=== PATIENT | female | born 1975 | race Caucasian/White ===

== ENCOUNTER 2024-09-08 15:10 | Outpatient (AMB) | payer OTHER, SELFPAY ==
--- NOTE | 2024-09-08 15:18 | MHC.OFFVIS ---
Vital Signs 09/08/24 15:22 09/08/24 15:24 09/08/24 16:10 Height 5 ft 1 in Weight 104 lb 6 oz BMI 19.7 BP 154/78 H 142/70 H 120/70 Blood Pressure Location Rt brachial Lt brachial Rt brachial Position Sitting Sitting Sitting Pulse 80 Pulse Source Pulse Oximeter Pulse Oximetry (%) 100 Oxygen Delivery Method Room Air Comment bp recheck Intake Visit Reasons: Chronic TMJ Pain Intake Note: Pain today 07/25 Consular Officer Required: No Accompanied by: Self / Same As Patient Allergies No Known Allergies Allergy (Verified 09/08/24 15:22) Medication List - Last Reconciled 09/08/24 by MENDEZ Gan bupropion HCl 100 mg PO BID dicyclomine 10 mg PO TID gabapentin 600 mg PO BEDTIME hydrocodone-acetaminophen 7.5-325 mg 1 tab PO Q8H PRN hydroxyzine HCl 50 mg PO BEDTIME lorazepam 1 mg PO BEDTIME PRN meclizine 12.5 mg PO TID PRN polyethylene glycol 3350 (Miralax) 17 grams PO DAILY zolpidem (Ambien) 10 mg PO BEDTIME PRN HPI Comments Details: The patient is a 48-year-old female presenting with headache and Temporomandibular Joint Syndrome (TMJ). She describes her pain as constant, throbbing, and radiating, with a pain level ranging from 5 to 6 out of 10, primarily located in the jaw area with associated tenderness. She has been managing her pain with hydrocodone/acetaminophen, gabapentin, hydroxyzine and lorazepam, and has tried various therapies such as physical therapy, chiropractic manipulation, massage therapy, acupuncture, and TENS unit with limited relief. Medication, particularly hydrocodone, has been the most effective in managing her pain, allowing her to be less symptomatic and more functional. Her medical history includes rhinoplasty and stapedectomy, and she does not smoke but consumes alcohol a few times a week or month socially. She experiences high levels of stress due to potential job loss, which may exacerbate her symptoms, and has been involved in psychological counseling and behavioral therapy for chronic pain syndrome for over 20 years. - Onset: Chronic pain - Quality: Throbbing, tiring, dull, sore, hurting, aching, heavy - Location: Jaw area, radiating to right side of the face - Severity: 5 to 6 out of 10 - Exacerbating factors: Stress, jaw movement - Relieving factors: Hydrocodone - Affect: High stress levels due to potential job loss - Analgesia: Hydrocodone/acetaminophen, gabapentin, lorazepam; pain level 5 to 6/10 - Adverse Effects: None reported - Activities of Daily Living: Pain impacts daily activities, managed with medication - Aberrant Drug Related Behaviors: None reported [facility] Medical History (Updated 09/08/24 @ 15:57 by MENDEZ Gan) Urinary frequency Situational stress Rectocele Raynaud phenomenon Pelvic floor dysfunction TMJ disease Overactive bladder Myalgia IBS (irritable bowel syndrome) Iron deficiency Hearing loss Insomnia [place] syndrome Fibroadenoma of right breast Chronic headache Breast pain, right Body dysmorphic disorder TMJ syndrome Surgical History (Updated 09/08/24 @ 16:15 by MENDEZ Gan) H/O stapedectomy H/O rhinoplasty H/O clubfoot correction Social History Alcohol intake: current Alcohol intake frequency: a few times a week Substance Use Type: Marijuana Review of Systems Const All systems reviewed & are unremarkable except as noted in HPI and below Physical Exam Vital Signs: Last Vital Signs Pulse 80 09/08/24 15:22 BP 142/70 H 09/08/24 15:24 Pulse Ox 100 09/08/24 15:22 Oxygen Delivery Method Room Air 09/08/24 15:22 BMI result Body Mass Index 19.7 General: Appears afebrile. Alert and oriented. Mood and affect appropriate. Follows and participates in conversation appropriately. Respiratory effort is unlabored. No cough. No nasal discharge. Able to transition from sit to stand unassisted. Ambulates with bilaterally normal heel strike and toe off. HEENT Head: Yes normal to inspection, Yes No palpable skull fracture present, Yes normocephalic, Yes atraumatic, No occipital foramen tenderness and No Temporal artery tenderness present Ears: hearing grossly normal bilaterally (h/o right ear surgery with improved hearing) Face and sinus: Yes normal facial exam, Yes sinuses nontender and Yes face symmetric Mouth: no audible dysphonia, no muffled voice, abnormal TMJ (right TMJ syndrome) and restricted motion (right ) Assessment & Plan Assessment & Plan (1) Temporomandibular joint pain-dysfunction syndrome: Code(s): M26.629 - Arthralgia of temporomandibular joint, unspecified side Category: Medical (2) Chronic headache: Code(s): R51.9 - Headache, unspecified; G89.29 - Other chronic pain Category: Medical (3) Myalgia: Code(s): M79.10 - Myalgia, unspecified site Category: Medical (4) Opioid dependence: Code(s): F11.20 - Opioid dependence, uncomplicated Category: Medical Plan The plan includes starting amitriptyline for TMJ syndrome and headaches, beginning with a 10 mg dose, with the possibility of increasing to 25 mg if well tolerated. Discussed with patient side effects and precautions. The patient should avoid alcohol while on amitriptyline and ensure a two-hour interval between amitriptyline and other medications such as Ambien, lorazepam and gabapentin. A referral to Dr. Ortiz in [place] for specialized TMJ treatment is advised. Continued psychological counseling and behavioral therapy are recommended to manage chronic pain syndrome and stress. Patient will continue Vicodin prescribing through her current provider. It does allow her to be less symptomatic and more functional. Patient is aware we do not offer opioid prescribing at this time. She is interested to consider [facility] in the future opioid tapering off but given significantly high levels of stress which increases her TMJ pain, she will continue Vicodin with her PCP. A follow-up in 3-4 weeks is suggested to evaluate the new medication's effectiveness and make any necessary adjustments. Patient was informed and verbally consented to the use of an ambient scribe for clinic note documentation during this visit. Orders: Referrals Addiction Medicine Referral F11.20 - Opioid dependence, uncomplicated Dentistry Referral G89.29 - Other chronic pain, M26.629 - Arthralgia of temporomandibular joint, unspecified side, M79.10 - Myalgia, unspecified site, R51.9 - Headache, unspecified Medications: New amitriptyline 10 mg PO BEDTIME 30 tabs 0RF pain 30 days G44.229 - Chronic tension-type headache, not intractable, M26.629 - Arthralgia of temporomandibular joint, unspecified side Coding Level of Care Code New Pt Level 4 (16434) Diagnoses Temporomandibular joint pain-dysfunction syndrome M26.629 Chronic headache R51.9; G89.29 Myalgia M79.10 Opioid dependence F11.20
[2024-09-08 15:22] VITALS: BP 154/78; PULSE 80; O2SAT 100; BMI 19.7
[2024-09-08 15:24] VITALS: BP 142/70
[2024-09-08 16:10] VITALS: BP 120/70
--- OUTSIDE RECORDS SUMMARY | 2024-09-08 18:21 | XMS_ITS | Data Portability ---
Author Organization [place] [facility], Allergy Address [address] [place] [address] Care Team Providers Care Assistant Media Planner Name Role Phone ROXANE LOMAX Primary Care Provider Assessment Encounter Date Assessment Date Assessment LastModified by Organization Details LastModified Time 11/14/2023 11/14/2023 The patient's history, physical exam, audiogram, and tuning fork testing are consistent with a conductive component of right-sided hearing loss secondary to otosclerosis. The pathophysiology of otosclerosis was discussed with the patient, and the stapes brochure discussed in detail. We discussed the available options including the use of amplification as well as surgical options. We discussed laser stapedotomy with vein graft in detail, going over the surgical steps in the brochure. We discussed the 1% risk of partial or complete sensorineural hearing loss as a result of surgery, the 3-4% risk that the hearing will stay the same after surgery, but overall a 95% chance that the patient will experience a significant improvement in the hearing in the operated ear. We discussed the risks of surgery including the risk of bleeding, infection, temporary or permanent taste disturbance, temporary or long-term balance disturbance, tinnitus, or tympanic membrane perforation. We also discussed the need to harvest a small vein graft from the back of the hand to serve as a seal around the base of the prosthesis as it enters the inner ear. We discussed anesthetic options including a general anesthetic versus a local anesthetic with intravenous sedation. After full discussion, the patient would like to proceed with right sided stapes surgery under local anesthesia with IV sedation. I have provided patient with the contact information for my surgical consultant. We will begin the scheduling process and see the patient back at the time of surgery. Patient will not require medical clearance from their primary care provider preoperatively. [email or web address] Not available 11/14/2023 10:10:53 01/10/2024 01/10/2024 48 year old faustina roche presents for routine one week postoperative follow up status post right laser stapedotomy with vein graft. She has maintained dry ear precautions. Majority of the gel foam was removed and patient tolerated this well. She was prescribed Ciloxan to use for ten days in the right ear. She was advised to maintain dry ear precautions for two more weeks. She will follow up with Dr. Hicks in 6-8 weeks. [email or web address] Not available 01/10/2024 15:09:04 02/25/2024 02/25/2024 The right ear pereira s healed well following laser stapedotomy with vein graft. Audiometric testing today shows significant improvement in hearing in comparison to her preoperative audiogram. There is some mild residual conductive hearing loss which will likely improve over time. Recommend follow-up audiogram in 1 year. She does have early otosclerosis in the left ear which does not require any intervention at the moment, but may progress as time goes by. [email or web address] Not available 02/25/2024 15:47:12 Plan of Treatment Reminders Order Date Submit Date Provider Last Modified By Organization Details Last Modified Time Details Appointments Establish ed 10 2024 03:30P M RONI HICKS MD Not available Not available Not available Lab None recorded. Referral None recorded. Procedures None recorded. Surgeries stapedect terry/stape dotomy w/ reestabli shment of ossicular continuit y (SURG) 2023 024 [email or web address] Not available 11/14/2023 10:43:38 Imaging None recorded. Medication Orders Ciloxan 0.3 % eye drops 2023 024 [id number], [address], [place], [place], [id number], 02/25/2024 14:49:38 Patient TargetsNo targets recorded. Patient InstructionsNo instructions recorded. Reason for Referral None Reported. Results Created Date Observation Date Name Description Value Unit Range Abnormal Flag Note LastModifiedBy Organization Detail LastModifiedTime 11/14/19 24 08/01/2023 audio gram No observ ation record ed. [email or web address] Not Available 10/17 13:55:30 11/14/19 24 07/23/2019 audio gram No observ ation record ed. [email or web address] Not Available 2023 16:27:12 11/15/19 24 11/14/2023 audio gram No observ ation record ed. [email or web address] Not Available 2023 16:27:39 02/26/20 audio gram No observ ation record ed. [email or web address] Not Available 2023 09:47:11 Result Notes None recorded. Problems Name Problem SNOMED Code Status Onset Date Resolution Date Notes Provider Name and Address Organization Details Recorded Time Temporoma ndibular joint disorder 64361764 Active 2014 Temporoma ndibular joint disorder; Note: Date Diagnosed : 08/26/2014 3:08 PM (524.60) Not Available [facility] 4 02:49:05 Deviated nasal septum 842751651 Active 2014 Deviated nasal septum; Note: Date Diagnosed : 08/26/2014 3:09 PM (470) Not Available [facility] 4 02:49:06 Conductiv e hearing loss 48533290 Active 2023 LOUIE WEEMS [address] [place] [address],[place] [address], [place], [address] , [facility] - [facility] 4 09:38:11 Sensorine ural hearing loss of bilateral ears 873405633 Active 2023 LOUIE WEEMS [address] [place] [address],[place] [address], [address] , [facility] - [facility] 4 09:38:16 Sensorine ural hearing loss 82744361 Active 2023 LOUIE WEEMS [address] [place] [address],[place] [address], [address] , [facility] - [facility] 4 09:40:27 Conductiv e hearing loss 19681671 Active 2023 RONI HICKS MD [address] [facility],[place] [address], [place], [address] , [place] [facility] 10:09:55 Bilateral otosclero sis of ossicle of ears 22964737424 02447 Active 2023 RONI HICKS MD [address] [facility],[place] [address], [place], [address] , [facility] - [facility] 10:10:07 Problem Notes None recorded. Procedures Surgical History Date Name Laterality Status Provider Name and Address Organization Details Recorded Time 02/25/20 24 Comp Audio 81112 completed LINNETTE LEES, AUD [address] [facility],[place] [address], [place], [address], [place] [facility] 02/25/2024 15:21:46 01/03/20 24 STAPEDECTOMY/STAPE DOTOMY W/ REESTABLISHMENT OF OSSICULAR CONTINUITY (SURG) completed RONI HICKS MD [address] [facility],[address], [address], [facility] - [facility] 01/03/2024 15:15:11 11/14/19 24 Comp Audio with Tymps & Reflexes - 51325 & 37459 completed EDNA HAMILTON, AUD [address] [facility],[place] [address], [place], [address], [place] [facility] 11/14/2023 09:37:45 reconstruction of nose completed Alyssa Marquez [facility] 02/25/2024 14:51:32 extraction of wisdom tooth completed Alyssa Marquez [facility] 02/25/2024 14:51:41 Imaging Results None recorded. Procedure Notes None recorded. Medical Equipment None Reported. Allergies No known drug allergies Medications Name Sig Start Date Stop Date Status Note LastModified by Organization Details LastModified Time gabapenti n 600 mg tablet TAKE 2 TABLETS BY MOUTH EVERY NIGHT AT BEDTIME active Not Available Not Available No t Available tizanidin e 2 mg tablet TAKE 1 TABLET BY MOUTH TWICE DAILY active Not Available Not Available No t Available ibuprofen 800 mg tablet TAKE 1 TABLET BY MOUTH THREE TIMES DAILY 02/24 completed Not Available Not Available Not Available bupropion HCl 100 mg tablet TAKE 1 TABLET BY MOUTH THREE TIMES DAILY active Not Available Not Available No t Available ciproflox acin 0.3 % eye drops active Not Available Not Available Not Available hydrocodo ne 7.5 mg-acetam inophen 325 mg tablet TAKE 1 TO 3 TABLETS BY MOUTH EVERY DAY NEEDED FOR PAIN active Not Available Not Available No t Available bupropion HCl 75 mg tablet 02/20 completed Not Available Not Available Not Available hydroxyzi ne HCl 25 mg tablet TAKE 1 TO 2 TABLETS BY MOUTH AT BEDTIME active Not Available Not Available No t Available zolpidem 5 mg tablet 02/24 completed Medicati on ID: [id number] Du ration Value: 30 Brand Name: zolpidem Send Method: E-Prescr ibed Sub s Allowed: subs OK Speci al Instruct ion: TAKE 1 OR 2 TABLETS BY MOUTH BEFORE BED. Med icationG enericNa me: zolpidem Not Available Not Available Not Available lorazepam 1 mg tablet TAKE 1/2 TO 1 TABLET BY MOUTH EVERY NIGHT AT BEDTIME NEEDED active Not Available Not Available No t Available zolpidem 10 mg tablet TAKE 1 TABLET BY MOUTH EVERY NIGHT AT BEDTIME active Not Available Not Available No t Available celecoxib 100 mg capsule 02/20 completed Not Available Not Available Not Available fluticaso ne propionat e 50 mcg/actua tion nasal spray,jennifer pension active Not Available Not Available Not Available diazepam 5 mg tablet TAKE 1 TABLET BY MOUTH THREE TIMES DAILY 02/24 completed Not Available Not Available Not Available oxycodone 5 mg tablet Take 1 tablet every 4-6 hours by oral route as needed for 3 days. 01/06 completed Not Available Not Available Not Available bupropion HCl XL 150 mg 24 hr tablet, extended release 02/20 completed Not Available Not Available Not Available hydrocodo ne 7.5 mg-acetam inophen 300 mg tablet 02/24 completed Medicati on ID: [id number] Du ration Value: 30 Brand Name: hydrocod one-acet aminophe n Send Method: E-Prescr ibed Sub s Allowed: subs OK Speci al Instruct ion: TAKE 1 TABLET BY MOUTH EVERY DAY NEEDED M edicatio nGeneric Name: hydrocod one-acet aminophe n Not Available Not Available Not Available GaviLyte- G 236 gram-22.7 4 gram-6.74 gram-5.86 gram oral solution active Not Available Not Available Not Available naloxone 4 mg/actuat ion nasal spray active Not Available Not Available Not Available Vitals Date Recorded Body height Body mass index (BMI) Body weight Provider Name and Address Organization Details Last Updated DateTime 11/14/2023 154.94 cm 18.9 kg/m2 23369.24 g Janis Zaman [facility] 11/14/2023 09:12:47 Date Recorded Body height Body mass index (BMI) Body weight Provider Name and Address Organization Details Last Updated DateTime 01/10/2024 154.94 cm 18.9 kg/m2 81953.24 g Reg Devi [facility] 01/10/2024 14:40:21 Date Recorded Body height Body weight Provider Name and Address Organization Details Last Updated DateTime 02/25/2024 154.94 cm 67519.24 g Alyssa Marquez [facility] 02/25/2024 14:49:08 Social History None recorded. Functional Status None recorded. Mental Status None recorded. Family History Nothing Reported. Medical History Condition Response Allergies/Hayfever N Heart Problems N Anxiety Y Tonsil Infections N Emphysema N Migraines N Thyroid Problems N Glaucoma N Depression Y COPD N Developmental Delay N Nasal or Sinus Problems Y Anemia N Immune System Disorder N Anesthesia Complications N Heart Attack ([place]) N Other Skin Condition N Diabetes N Rhinitis N Bleeding Disorder N Food Allergy N Arthritis N Hearing Loss Y Hyperlipidemia N Cancer N Stroke N Dementia N Nasal polyps N Asthma N Sleep Disorder Y GERD/Reflux Y High Cholesterol N Liver Disease N Headaches Y Fibromyalgia N Hypertension N Speech Delay N Kidney Disease N Gynecological HistoryNo gynecological history recorded. Obstetrics History GPAL:G 0 P 0 0 0 0 Past Encounters Encounter ID Performer Location Encounter Start Date Encounter Closed Date Diagnosis/Indication Diagnosis SNOMED-CT Code Diagnosis ICD10 Code Diagnosis Note [id number] RONI HICKS MD [facility] [address] [address] 11/14/2023 09:03:55 11/14/2023 10:24:36 Conductive hearing loss 21088675 H90.A11 [facility] with excellent word recognitio n.Left ear:Normal sloping to moderate conductive hearing loss with good word recognitio n. Conductive components present at 2k and 4kHz.Tympa nometry:Ri ght Ear:Type ALeft Ear:Type A Ipsi and contra acoustic reflexes absent , [place]. Bilateral otosclerosis of ossicle of ears 8935361196 864301 H80.93 [id number] RONI HICKS MD [facility] [address] [facility] [address] [place] [address] 01/03/2024 00:17:06 01/03/2024 00:17:09 Bilateral otosclerosis of ossicle of ears 0226103107 257692 H80.93 Conductive hearing loss 77698923 H90.A11 [id number] AARON KAPOOR PA-C [facility] [address] [address] 01/10/2024 14:26:21 01/10/2024 14:57:00 Bilateral otosclerosis of ossicle of ears 9348993551 533052 H80.93 [id number] RONI HICKS MD [facility] [address] [place] [address] 02/25/2024 14:25:12 02/25/2024 15:50:05 Bilateral otosclerosis of ossicle of ears 4039835127 779491 H80.93 Audiologic al evaluation results: 02/25/2024 Right ear:Mild rising to borderline normal sloping to mild conductive hearing loss with excellent word recognitio n.Left ear: DNT Conductive hearing loss 47291170 H90.A11 Health Concerns Section Related Observation LastModified by Organization Detai ls LastModified Time None Recorded Concern Status LastModified by Organization Details LastModified Time None Recorded Advance Directives Directive None Recorded Payers Insurance Date Sequence Insurance Name Policy Number Policy Munoz Covered Member ID Munoz Member ID Guarantor Name 01/10/2024 1 [facility] IN[facility]MN[facility] [id number] 1 Vi Strange [id number] Vi Strange 02/21/2024 1 [facility] INDEMN[facility] PL[facility] (PPO) [id number] 1 Vi Strange [id number] Vi Strange 01/10/2024 1 [facility] [id number] 1 Vi Doss Alie [id number] Vi Doss Alie Notes Date Note Type Note Provider Name and Address Organization Details Recorded Time 11/14/2023 text/html Patient comes in today for evaluation of her hearing. She began noticing hearing loss in [address] Coleman. She had a relatively mild low-frequency conductive hearing loss initially, but over the past couple of years has demonstrated progression of the air-conduction thresholds with normal bone-conduction thresholds. Patient does recall an incident where she sustained a moderate head trauma back in 2018, but she did not notice any immediate reductions in her hearing at that time. She notes that her mother does have hearing loss and also grandparents on her mother side have hearing loss as well. No other family members who have had surgery on their ears as far she knows. RONI HICKS MD [address] [place] [address],[address], [address], [facility] 11/14/2023 10:13:06 01/10/2024 text/html 48 year old faustina roche presents for routine one week postoperative follow up status post right laser stapedotomy with vein graft. She has maintained dry ear precautions. ÁNGEL DOE MD [address] [place] [address],[address], [address], [facility] 01/10/2024 16:56:55 02/25/2024 text/html Status post righ t laser stapedotomy with vein graft on 01/03/2024. She has noticed improvement in her hearing. Uneventful postoperative course. RONI HICKS MD [address] [facility],[address], [address], [facility] 02/25/2024 15:47:24 OBGyn Episode No OBEpisode recorded.
== END 2024-09-08 16:10 | disposition home or self-care (01) ==
LOC: HO.PMC 15:10
PROVIDERS: PCP Internal Medicine; Referring Provider Internal Medicine; Visit Provider Nurse Practitioner Family
DX: M26.629 Arthralgia of temporomandibular joint, unspecified side (principal); R51.9 Headache, unspecified; G89.29 Other chronic pain; M79.10 Myalgia, unspecified site; Z79.891 Long term (current) use of opiate analgesic
CPT/HCPCS: 99204